=== PATIENT | male | born 1955 | race Two or more races ===

== ENCOUNTER 2021-03-05 10:52 | Outpatient (CLI) | payer OTHER | END 2021-03-05 10:53 | disposition home or self-care (01) | LOC: LAB 10:52 | PROVIDERS: ATTEND Surgery | DX: R97.20 Elevated prostate specific antigen [PSA] (principal) ==

== ENCOUNTER 2021-03-12 07:02 | Outpatient (CLI) | payer OTHER | END 2021-03-12 07:10 | disposition home or self-care (01) | LOC: SONOGRAMA 07:02 | PROVIDERS: ATTEND Surgery | DX: D29.1 Benign neoplasm of prostate (principal); R97.20 Elevated prostate specific antigen [PSA] ==